=== PATIENT | female | born 1955 | race Caucasian/White ===

== ENCOUNTER → 2017-10-04 | Outpatient (CLI) | payer BC ==
[~2017-10-04] VITALS: Ht 165.1 cm; Wt 53.5 kg
[~2017-10-04] MED LIST: ALLEGRA-D 24 H1 EACH PO; ARMOUR THYROID15 M1 PO; CHROMIUM PICO400 MCG PO; COLOSTRUM500 MG PO; DUEXIS 800-26.1 EACH PO; GLUCOSAMINE CH1 EAC2 PO; IBUPROFEN 800800 M1 PO; IODORAL PO; JOINT SUPPORT1 EACH PO; L-CARNITINE500 M1 PO; MEGA TAURINE1000 MG PO; PRINIVIL10 MG PO; PRISTIQ50 M1 PO; RESVERATROL250 MG PO; SELENIMIN200 MCG PO; TRAMADOL 50 MG50 MG PO; TRAZODONE HCL50 MG PO; VINPOCETINE1 GM PO; VITAMIN B COMP1 EACH PO; VITAMIN B-121000 MC3 PO; VITAMIN D-32000 UNIT PO; VITAMINC500 PO; ZINC PICOLINAT1 EACH PO; [UNRECOGNIZED DRUG - OTHER] PO; [UNRECOGNIZED DRUG - OTHER] PO; [UNRECOGNIZED DRUG - OTHER] PO; [UNRECOGNIZED DRUG - OTHER] PO; [UNRECOGNIZED DRUG - OTHER] PO; [UNRECOGNIZED DRUG - OTHER] PO
--- NOTE | ~2017-10-04 | EKG ---
[address] [place] [address] ELECTROCARDIOGRAM REPORT Name: JENNY RODRÍGUEZ Room #: [facility]#: [id number] Admission: Attend Phys: Ramez Berry MD Discharge: Date of : 55 Report #: [id number] THIS REPORT FOR: //name// [facility] Test Date: 2017-10-04 Test Time: 09:32:42 Pat Name: JENNY RODRÍGUEZ Department: Room: Gender: F Photography Editor: karely : 1955 Requested By: Ramez Berry Order Number: [id number] MD: Milton Cabrera Measurements Intervals [place] Rate: 65 P: 46 FL: 215 QRS: 23 QRSD: 93 T: 41 QT: 377 QTc: 392 Interpretive Statements Sinus rhythm Borderline prolonged [place] interval No previous ECG available for comparison Electronically Signed On 10-04-2017 17:15:50 CDT by Milton Cabrera [email or web address] <ELECTRONICALLY SIGNED> By: Milton Cabrera MD, [facility] 10/04/17 1715 0932 0932 Milton Cabrera MD, FACC /EPI
[2017-10-04 09:39] LABS: URINE BILIRUBIN NEGATIVE (Negative); URINE BLOOD NEGATIVE (Negative); URINE CLARITY CLEAR; URINE COLOR YELLOW; URINE GLUCOSE-RANDOM* NEGATIVE (Negative); URINE KETONES NEGATIVE (Negative); URINE LEUKOCYTES-REFLEX NEGATIVE (Negative); URINE NITRITE-REFLEX NEGATIVE (Negative); URINE PROTEIN (DIPSTICK) NEGATIVE (Negative); URINE SPECIFIC GRAVITY >= 1.030 (1.005-1.035); URINE UROBILINOGEN 0.2 E.U./dl (0.2-1.0)
[2017-10-04 09:42] LABS: HEMATOCRIT 36.9 % (37.0-47.0); HEMOGLOBIN 12.8 gm/dL (12.0-15.0); MCH 29.7 pg (26.0-34.0); MCHC 34.6 g/dL (28.0-37.0); MCV 85.9 fL (80.0-100.0); RBC 4.29 mil/uL (4.20-5.00); RDW 12.4 % (10.5-14.5); WBC 3.6 thou/uL (4.0-11.0)
[2017-10-04 09:49] LABS: ALBUMIN 3.7 g/dL (3.4-5.0); CALCIUM 9.3 mg/dL (8.5-10.1); CREATININE 0.7 mg/dL (0.6-1.0); POTASSIUM 4.1 mmol/L (3.5-5.1)
[2017-10-04 09:52] LABS: PROTIME 10.2 Seconds (9.3-11.4)
== END ==
LOC: EDBD → LAB 09:50 → EDSTATUS 10-18 09:34 → PRE 10-18 10:20
PROVIDERS: Orthopaedic Surgery
DX: Z01.818 Encounter for other preprocedural examination (principal); R79.89 Other specified abnormal findings of blood chemistry